=== PATIENT | female | born 1940 | race Caucasian/White ===

== ENCOUNTER → 2023-08-30 07:45 | Outpatient (REF) | payer BC, SELFPAY | LOC: HWCARD 07:45 | PROVIDERS: ATTENDING PHYSICIAN Nurse Practitioner Family | DX: Z01.818 Encounter for other preprocedural examination (principal) | CPT/HCPCS: 93005 ==

== ENCOUNTER 2023-09-19 11:41 | Emergency (ER) | payer BC, SELFPAY ==
[2023-09-19 12:05] VITALS: BP 128/65
--- NOTE | 2023-09-19 12:18 | ED.PDOC.TRB ---
ED Provider Triage
-
Patient seen by provider in Triage?: Seen in Triage
83-year-old female presenting the emergency department for evaluation after she had a syncopal episode while in the shower earlier this morning. Patient currently noting some brain fog. No other concerns at present time. States had her battery
changed in her deep brain stimulator 2 days ago at [facility] in [place]. Labs and EKG ordered. CT of the head ordered as well. Patient is otherwise very well-appearing and stable. No signs of head trauma
[2023-09-19 12:40] LABS: % Basophils 0.6 % (0-2); % Eosinophils 0.4 % (0-6); % Immature Granulocytes 0.4 % (0-0.5); % Lymphocytes 19.5 % (20.5-51.1); % Monocytes 11.4 % (1.7-9.3); % Neutrophils 67.7 % (42.2-75.2); Absolute Monocytes 0.6 10^3/uL (0.1-0.6); Absolute Neutrophils 3.6 10^3/uL (1.4-6.5); Hematocrit 41.4 % (37.0-47.0); Hemoglobin 14.2 g/dL (12.0-16.0); Mean Corp Hgb Conc. 34.3 g/dL (33.0-37.0); Mean Corpuscular Hgb 29.9 pg (27.0-31.0); Mean Corpuscular Volume 87.2 fL (81.0-99.0); Mean Platelet Volume 9.5 fL (7.4-10.4); Nucleated Red Blood Cells % 0 %; Platelet Count 278 10^3/uL (130-400); Red Blood Cell Count 4.75 10^6/uL (4.20-5.40); Red Cell Dist. Width 14.2 % (11.5-14.5); White Blood Cell Count 5.3 10^3/uL (4.8-10.8)
[2023-09-19 12:57] LABS: ALT (SGPT) 34 U/L (0-35); AST (SGOT) 54 U/L (14-36); Albumin 3.8 g/dl (3.5-5.0); Alkaline Phosphatase 130 U/L (38-126); Blood Urea Nitrogen 24 mg/dl (7-17); Carbon Dioxide 28 mmol/L (22-30); Chloride 103 mmol/L (98-107); Glucose 147 mg/dl (70-99); Potassium 4.5 mmol/L (3.5-5.1); Sodium 138 mmol/L (135-145); Total Bilirubin 0.6 mg/dl (0.2-1.3); Total Protein 6.2 g/dl (6.3-8.2); eGFR > 60.00
[2023-09-19 13:09] LABS: Troponin I < 0.012 ng/ml
[2023-09-19 14:18] VITALS: BMI 27.6
--- NOTE | 2023-09-19 14:46 | ED.GENMED ---
History of Present Illness
General
Chief Complaint: Fainting/Passed Out
Source: patient and spouse
Exam Limitations: none
Time Seen by Provider: 09/19/23 14:42
Nursing documentation reviewed up to this point in time: agreed with
Travel History
Have you had any contact with someone who has COVID-19?: No
Do you have any symptoms of coronavirus? Fever > 100 degrees, chills, cough, shortness of breath, sore throat, loss of taste or smell, muscle aches, or headache?: No
History of Present Illness
History of Present Illness:
83-year-old female presents emergency department complaining of syncope episode while in the shower. She was in the shower for a long time trying to get the bandage off of her recently changed the battery for her neurostimulator. This occurred at
8:30 AM. She then had breakfast and called her primary care doctor who directed her to the emergency department. She has no complaints at this time. She ambulates without difficulty.
Past History
Past History
ED Past Medical History: GERD, HTN and Other (essential tremor, colitis, lumbar spinal stenosis)
ED Past Surgical History: Gynecological (Hysterectomy), Orthopedic (Carpal tunnel surgery, trigger finger surgery, spinal stenosis and herniated disc surgery, foot surgery for neuroma and bunion, rotator cuff tear) and Other (Breast surgery times 4,
surgery for glaucoma, left eye cataract surgery, Lasik, deep brain stimulator insertion 03/22/2017)
Social History
Tobacco: Non-smoker
Drug: None
Personal:
Living: with family
Employment: Retired (nurse)
Family History
Family History: Other (tremor in youngest son)
Review of Systems
Review of Systems
Allergies reviewed?: Yes
All Other Systems: Not applicable
Constitutional: Reports no symptoms
EENT: Reports no symptoms
Respiratory: Reports no symptoms
Cardiac: Reports syncope
ABD/GI: Reports no symptoms
: Reports no symptoms
Musculoskeletal: Reports no symptoms
Skin: Reports no symptoms
Neurological: Reports no symptoms
Endocrine: Reports no symptoms
Hematologic/Lymphatic: Reports no symptoms
Psychiatric: Reports no symptoms
Phy Exam
Physical Exam
Physical Exam:
Physical Exam
General: no apparent distress, not acutely ill
Neck: supple. no meningeal signs. normal posterior pharynx
Heart: s1/s2 regular rate and rhythm, no murmur. equal radial
pulses.
HEENT: Pupils equal round reactive to light, EOMI
Lungs: no acute respiratory distress. clear bilaterally
Abdomen: normal bowel sounds. not tender. no CVAT
Neuro: alert and oriented. no focal neurological deficits cranial nerves II through XII intact
Skin: no rash, healing incision on right upper chest for stimulator battery change
Psychiatric: well kept. interactive and cooperative
Extremities: no edema. no calf tenderness. negative homans. good distal pulses
Course
Orders/Labs/Results
Orders:
Orders
09/19/23 12:08
ECG [Electrocardiogram (*1)] Urgent
Reason for Study: Syncope
EKG- Treatment ONCE
09/19/23 12:31
Complete Blood Count/With Diff Urgent
Comprehensive Metabolic Panel Urgent
Troponin I Urgent
09/19/23 13:25
CT Head W/o Iv Contrast Urgent
Comment:
Reason For Exam: syncope in shower, brain stimulator
Abnormal Lab Results
09/19/23
12:31
Absolute Lymphs (auto) 1.0 L 10^3/uL
(1.2-3.4)
Lymphocytes % 19.5 L %
(20.5-51.1)
Monocytes % 11.4 H %
(1.7-9.3)
BUN 24 H mg/dl
(7-17)
Glucose 147 H mg/dl
(70-99)
AST 54 H U/L
(14-36)
Alkaline Phosphatase 130 H U/L
(38-126)
Total Protein 6.2 L g/dl
(6.3-8.2)
09/19/23 12:31
09/19/23 12:31
Vital Signs
Initial and Last Documented VS:
Initial Vital Signs
Temp Pulse Resp BP Pulse Ox
98.0 F 71 18 128/65 96
09/19/23 12:05 09/19/23 12:05 09/19/23 12:05 09/19/23 12:05 09/19/23 12:05
Last Documented Vital Signs
Temp Pulse Resp BP Pulse Ox
98.0 F 71 18 128/65 96
09/19/23 12:05 09/19/23 12:05 09/19/23 12:09/19/23 12:05 09/19/23 12:05
MDM/Problems Addressed
Differential Diagnosis Includes:
Intracranial hemorrhage, hip fracture, dysrhythmia
MDM/Problems Addressed:
83-year-old female with syncope episode, suspect vasovagal cause.
Chronic conditions affecting care: Neurological disorder ( tremor Central)
*Radiology
Radiology exam reviewed: radiology read reviewed (CT head no acute findings)
*Pulse Oximetry
Patient hypoxic: no
*EKG
Interpreted by ED Provider?: Yes
EKG Intrepretation Date: 09/19/23
EKG Intrepretation Time: 12:37
Interpretation: normal
Comparison EKG: no changes
Heart Rate: 61
Rate: normal
Rhythm: sinus
Center: normal axis
Interval: normal interval
QRS Pattern: normal QRS
Ischemia: no ischemia
*Crusher Loader Operator Interpretation
Rate: Crusher Loader Operator- N/A
*Critical Care Note
Total Time (30-74mins, 75-104mins- exclusive of procedures): Not Applicable
Patient Management
Escalation/DeEscalation of care consider admission/obs:
Admit not indicated
ED Attending Note
-
Portions of this chart may have been created with voice recognition software.� Occasional wrong word or��sound alike� substitutions may have occurred due to the inherent limitations of voice recognition software.
Discharge Plan
Departure
Patient Disposition: Home (Routine Discharge)
Date of Disposition: 09/19/23
Time of Disposition: 14:59
Patient with high blood pressure during this ER visit?: Yes
Condition: Good
Discharge Problem:
Syncope
Instructions: Syncope (Fainting) (DC), BLOOD PRESSURE
Prescriptions:
No Action
losartan 50 MG tablet
50 mg PO DAILY
amlodipine 10 MG tablet
10 mg PO DAILY
cyclosporine [Restasis] 10 DROPS dropperette
2 drops BOTH EYES BID
mirabegron [Myrbetriq] 50 MG tablet extended release 24 hr
50 mg PO DAILY
cholecalciferol (vitamin D3) 1,000 UNITS tablet
1,000 units PO DAILY
cyanocobalamin (vitamin B-12) 1,000 MCG tablet
1,000 mcg PO DAILY
ascorbic acid (vitamin C) [Vitamin C] 500 MG tablet
500 mg PO DAILY
psyllium husk (aspartame) [Metamucil Fiber Singles] 1 PACKET powder in packet
30 ml PO DAILY
L.acidoph, paracasei,B. lactis 1 EACH capsule
1 ea PO DAILY
atorvastatin 40 MG tablet
40 mg PO QPM Qty: 30 2RF
clopidogrel 75 MG tablet
75 mg PO DAILY Qty: 20 0RF
Rx Instructions:
take daily for 20 moredays, then stop
ferrous sulfate [FeroSul] 325 MG tablet
325 mg PO HS 0RF
docusate sodium 100 MG capsule
100 mg PO BIDPRN PRN (Reason: No BM > 24 hours) 0RF
aspirin 81 MG tablet,chewable
81 mg PO DAILY 0RF
Referrals:
Mio Yip CRNP [Family Provider] - Call in 1-3 days for appt
Interventions
Interventions:
*ED COVID-19 Vaccine History Last Done: 09/19/23 12:05
Discharge Date and Time
Print Language: MACEDONIAN
== END 2023-09-19 15:18 | disposition home or self-care (01) ==
LOC: EMR 11:41
PROVIDERS: Physician Assistant Medical; EMERGENCY PHYSICIAN Emergency Medicine; FAMILY PHYSICIAN Nurse Practitioner Family
DX: R55 Syncope and collapse (principal); I10 Essential (primary) hypertension; K21.9 Gastro-esophageal reflux disease without esophagitis; G25.0 Essential tremor; M48.061 Spinal stenosis, lumbar region without neurogenic claudication; K52.9 Noninfective gastroenteritis and colitis, unspecified; M19.90 Unspecified osteoarthritis, unspecified site; H40.9 Unspecified glaucoma; Z79.82 Long term (current) use of aspirin; Z88.1 Allergy status to other antibiotic agents; Z88.7 Allergy status to serum and vaccine; Z88.8 Allergy status to other drugs, medicaments and biological substances
CPT/HCPCS: 99284; 70450; 80053; 84484; 85025; 93005

== ENCOUNTER → 2023-12-04 15:29 | Outpatient (REF) | payer BC, SELFPAY | LOC: HWRAD 15:29 | PROVIDERS: ATTENDING PHYSICIAN Nurse Practitioner Family | DX: Z00.00 Encounter for general adult medical examination without abnormal findings (principal); M25.552 Pain in left hip; M25.551 Pain in right hip; Z12.31 Encounter for screening mammogram for malignant neoplasm of breast | CPT/HCPCS: 73522 ==

== ENCOUNTER → 2023-12-23 15:00 | Outpatient (REF) | payer BC, SELFPAY | LOC: HWWDC 15:00 | PROVIDERS: ATTENDING PHYSICIAN Nurse Practitioner Family | DX: Z12.31 Encounter for screening mammogram for malignant neoplasm of breast (principal) | CPT/HCPCS: 77063; 77067 ==

== ENCOUNTER → 2024-09-21 08:22 | Outpatient (REF) | payer BC, SELFPAY | LOC: HWRAD 08:22 | PROVIDERS: ATTENDING PHYSICIAN Nurse Practitioner Family | DX: Z78.0 Asymptomatic menopausal state (principal) | CPT/HCPCS: 77080 ==

== ENCOUNTER → 2024-11-03 10:16 | Outpatient (REF) | payer BC, SELFPAY | LOC: HWRAD 10:16 | PROVIDERS: ATTENDING PHYSICIAN Nurse Practitioner; FAMILY PHYSICIAN Nurse Practitioner Family | DX: N94.818 Other vulvodynia (principal); N39.46 Mixed incontinence; R39.15 Urgency of urination | CPT/HCPCS: 76770; 76856 ==

== ENCOUNTER 2024-11-27 08:33 | Emergency (ER) | payer BC, SELFPAY ==
[2024-11-27 08:36] VITALS: BP 143/66
--- NOTE | 2024-11-27 09:45 | ED.GENMED ---
History of Present Illness
<Betty Carrizales DO, Resident - Last Filed: 11/28/24 08:09>
General
Chief Complaint: Back Pain
Source: patient and significant other
Exam Limitations: none
Time Seen by Provider: 11/27/24 09:30
Nursing documentation reviewed up to this point in time: agreed with
History of Present Illness
History of Present Illness:
Patient is an 84-year-old female past medical history hypertension hyperlipidemia presenting with right-sided back pain. Patient has a history of chronic back pain s/p surgery to correct spinal stenosis and herniated discs 28 years ago and history
od steroid injections in lower back that she stopped in 2019. Yesterday after her water aerobics class she noted a sharp stabbing pain in the back on the right side. Patient tried Tylenol and ice which helped and made the pain bearable. Patient
slept okay overnight, but when she woke up to go to the bathroom and started walking she had the same sharp pain. This pain limits her movement. Patient denies urinary symptoms. While seated patient describes the pain as a 3 out of 10. Patient
describes occasional tingling down the back of her right leg. Patient denies radiating pain. Patient does note numbness in her bilateral feet, but this is not new for her. Patient denies all other ROS.
Past History
<Betty Carrizales DO, Resident - Last Filed: 11/28/24 08:09>
Past History
ED Past Medical History: GERD, HTN and Other (essential tremor, colitis, lumbar spinal stenosis)
ED Past Surgical History: Gynecological (Hysterectomy), Orthopedic (Carpal tunnel surgery, trigger finger surgery, spinal stenosis and herniated disc surgery, foot surgery for neuroma and bunion, rotator cuff tear) and Other (Breast surgery times 4,
surgery for glaucoma, left eye cataract surgery, Lasik, deep brain stimulator insertion 03/22/2017)
Social History
Tobacco: Non-smoker
Drug: None
Personal:
Living: with family
Employment: Retired (nurse)
Family History
Family History: Other (tremor in youngest son)
Review of Systems
<Betty Carrizales DO, Resident - Last Filed: 11/28/24 08:09>
Review of Systems
Allergies reviewed?: Yes
All Other Systems: ROS reviewed and negative except as documented in HPI and ROS
Constitutional: Reports no symptoms
EENT: Reports no symptoms
Respiratory: Reports no symptoms
Cardiac: Reports no symptoms
ABD/GI: Reports no symptoms
: Reports no symptoms
Musculoskeletal: Reports back pain
Skin: Reports no symptoms
Neurological: Reports no symptoms
Endocrine: Reports no symptoms
Hematologic/Lymphatic: Reports no symptoms
Psychiatric: Reports no symptoms
Phy Exam
<Betty Carrizales DO, Resident - Last Filed: 11/28/24 08:09>
General Physical Exam
General Presentation: well appearing and no apparent distress
General age: appears stated age
General Skin: warm and dry
General Habitus: normal
General Mental: alert
Cardiovascular Exam
Cardiovascular Exam: regular rate/rhythm
Pulmonary Exam
Pulmonary Exam: lungs clear, no respiratory distress, no crackles and no wheezing
Gastrointestinal Exam
Gastrointestinal Exam: normal bowel sounds and non tender
Musculoskeletal Exam
Musculoskeletal Exam: back pain (Nontender to palpation.)
Skin Exam
Skin Exam: normal color and warm/dry
Psychiatric Exam
Psychiatric Exam: normal mood/affect
Course
<Betty Carrizales DO, Resident - Last Filed: 11/28/24 08:09>
Orders/Labs/Results
Orders:
Orders
11/27/24 09:56
CR Lumbar Spine Comp Min 4 Vw* Stat
Comment:
Reason For Exam: acute back pain
11/27/24 10:45
Gabapentin [Neurontin] 300 mg PO NOW STA
Vital Signs
Initial and Last Documented VS:
Initial Vital Signs
Temp Pulse Resp BP Pulse Ox
97.9 F 69 16 143/66 98
11/27/24 08:36 11/27/24 08:36 11/27/24 08:36 11/27/24 08:36 11/27/24 08:36
Last Documented Vital Signs
Temp Pulse Resp BP Pulse Ox
97.9 F 69 16 143/66 98
11/27/24 08:36 11/27/24 08:36 11/27/24 08:36 11/27/24 08:36 11/27/24 09:50
<Ulices Cool DO - Last Filed: 11/30/24 14:12>
Orders/Labs/Results
Orders:
Orders
11/27/24 09:56
CR Lumbar Spine Comp Min 4 Vw* Stat
Comment:
Reason For Exam: acute back pain
11/27/24 10:45
Gabapentin [Neurontin] 300 mg PO NOW STA
Vital Signs
Initial and Last Documented VS:
Initial Vital Signs
Temp Pulse Resp BP Pulse Ox
97.9 F 69 16 143/66 98
11/27/24 08:36 11/27/24 08:36 11/27/24 08:36 11/27/24 08:36 11/27/24 08:36
Last Documented Vital Signs
Temp Pulse Resp BP Pulse Ox
97.9 F 69 16 143/66 98
11/27/24 08:36 11/27/24 08:36 11/27/24 08:36 11/27/24 08:36 11/27/24 09:50
<Betty Carrizales DO, Resident - Last Filed: 11/28/24 08:09>
MDM/Problems Addressed
Differential Diagnosis Includes:
osteoarthritis, degenerative changes
MDM/Problems Addressed:
Lumber spine x ray showed No acute radiographic abnormalities. 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 No compression deformities appreciated. Mild osteoarthritis of both hips.
Will discharge with gabapentin and gave referral to [facility] for follow up in 1-3 days.
<Betty aCrrizales DO, Resident - Last Filed: 11/28/24 08:09>
*Radiology
Radiology exam reviewed: radiology read reviewed
*Pulse Oximetry
SaO2: 98
Oxygen Mode of Delivery: Room air
Patient hypoxic: no
*Critical Care Note
Total Time (30-74mins, 75-104mins- exclusive of procedures): Not Applicable
ED Attending Note
<Betty Carrizales DO, Resident - Last Filed: 11/28/24 08:09>
-
Portions of this chart may have been created with voice recognition software.� Occasional wrong word or��sound alike� substitutions may have occurred due to the inherent limitations of voice recognition software.
<Ulices Cool DO - Last Filed: 11/30/24 14:12>
ED Attending Note
Patient seen and examined by attending physician: Yes
I performed a history and physical exam of patient and discussed management with resident, I reviewed resident's note and agree with documented findings and plan of care.: Yes
ED Attending Note:
I reviewed and agree with history and treatment plan by Betty Carrizales DO. My exam revealed 84-year-old female with no neurologic deficits, mild pain with movement. No signs of fracture, degenerative changes seen on x-ray. Stable for
discharge and follow-up with pain management
Discharge Plan
Departure
Patient Disposition: Home (Routine Discharge)
Date of Disposition: 11/27/24
Time of Disposition: 10:50
Patient with high blood pressure during this ER visit?: Yes
Discharge Problem:
Back pain
Instructions: Low Back Pain (DC), BLOOD PRESSURE
Prescriptions:
New
gabapentin 100 mg capsule
100 mg PO TID Qty: 60 0RF
Rx Instructions:
Take 1 tablet 3 times per day as needed for pain. Increase to 2 tablets 3 times/day if tolerated.
No Action
losartan 50 MG tablet
50 mg PO DAILY
amlodipine 10 MG tablet
10 mg PO DAILY
cyclosporine [Restasis] 10 DROPS dropperette
2 drops BOTH EYES BID
mirabegron [Myrbetriq] 50 MG tablet extended release 24 hr
50 mg PO DAILY
cholecalciferol (vitamin D3) 1,000 UNITS tablet
1,000 units PO DAILY
cyanocobalamin (vitamin B-12) 1,000 MCG tablet
1,000 mcg PO DAILY
ascorbic acid (vitamin C) [Vitamin C] 500 MG tablet
500 mg PO DAILY
psyllium husk [Metamucil Fiber (aspartame)] 1 PACKET powder in packet
30 ml PO DAILY
sherri Lang B.animalis 1 EACH capsule
1 ea PO DAILY
atorvastatin 40 MG tablet
40 mg PO QPM Qty: 30 2RF
clopidogrel 75 MG tablet
75 mg PO DAILY Qty: 20 0RF
Rx Instructions:
take daily for 20 moredays, then stop
ferrous sulfate [FeroSul] 325 MG tablet
325 mg PO HS 0RF
docusate sodium 100 MG capsule
100 mg PO BIDPRN PRN (Reason: No BM > 24 hours) 0RF
aspirin 81 MG tablet,chewable
81 mg PO DAILY 0RF
Referrals:
Romie Salgado DO [Non-Admitting Privileges, Orthopedics] - Call in 1-3 days for appt
Mio Yip CRNP [Family Provider, Family Practice]
Activity Restrictions/Additional Instructions:
Please take gabapentin 1 tablet 3x daily as needed for back pain relief. You can increase to 2 pills 3x daily if tolerated. Referral provided for Dr. Romie Salgado with [facility]. Please call in 1 to 3 days to make a follow-up appointment.
Interventions
Interventions:
*Risk Screen - Suicide Last Done: 11/27/24 08:36
*General Assessment Last Done: 11/27/24 09:40
*Neglect/Abuse Screening Last Done: 11/27/24 08:36
*ED- Fall Risk Assessment Last Done: 11/27/24 09:40
*ED COVID-19 Vaccine History Last Done: 11/27/24 09:40
*Nursing Disposition Last Done: 11/27/24 11:05
ED-Musculoskeletal Assessment Last Done: 11/27/24 09:41
Discharge Date and Time
Discharge Date/Time: 11/27/24 11:05
Print Language: HUNGARIAN
[2024-11-27] MEDS: NEURONTIN 300 MG PO (10:54)
== END 2024-11-27 11:05 | disposition home or self-care (01) ==
LOC: EMR 08:33
PROVIDERS: EMERGENCY PHYSICIAN Emergency Medicine; FAMILY PHYSICIAN Nurse Practitioner Family
DX: M54.9 Dorsalgia, unspecified (principal); I10 Essential (primary) hypertension; E78.5 Hyperlipidemia, unspecified
CPT/HCPCS: 99283; 72110

== ENCOUNTER → 2025-01-15 11:06 | Outpatient (REF) | payer BC, SELFPAY | LOC: HWRAD 11:06 | PROVIDERS: ATTENDING PHYSICIAN Physician Assistant; FAMILY PHYSICIAN Nurse Practitioner Family | DX: Z96.89 Presence of other specified functional implants (principal) | CPT/HCPCS: 36415; 70260; 71046; 72040 ==